=== PATIENT | male | born 1930 | race Caucasian/White ===

== ENCOUNTER 2016-12-10 16:52 | Emergency (ER) | payer MEDICARE, OTHER ==
[~2016-12-10] VITALS: Ht 182.9 cm; Wt 105.0 kg
[2016-12-10 16:54] VITALS: BP 114/74; PULSE 74; RESP 28; TEMP 97.4; O2SAT 100
--- NOTE | 2016-12-10 16:59 | PD ---
Physical Exam Date Seen by Provider: Dec 10, 2016 Time Seen by Provider: 16:57 Data Data Last Documented VS Vital Signs Date Time Temp Pulse Resp B/P Pulse Ox O2 Delivery O2 Flow Rate FiO2 12/10/16 16:54 97.4 74 28 114/74 100 Room Air MDM Supervised Visit with KRISTEL: No Narrative Course 85 YO M with PMH of CHF, chronic CP presents with complaint of SOB and dizziness after news of his daughters poor prognosis. Vitals reviewed. Awaiting bed placement. Savita Lazaro Dec 10, 2016 16:59
== END 2016-12-10 17:23 | disposition left against medical advice (07) ==
LOC: NED 16:52
DX: Z53.21 Procedure and treatment not carried out due to patient leaving prior to being seen by health care provider (principal); R06.02 Shortness of breath
CPT/HCPCS: 99281